=== PATIENT | female | born 2000 | race Two or more races ===

== ENCOUNTER 2023-01-28 09:38 | Emergency (ER) | payer OTHER ==
[~2023-01-28] VITALS: Ht 162.6 cm; Wt 98.0 kg
== END 2023-01-28 17:37 | disposition home or self-care (01) ==
LOC: ER 09:38
DX: R10.13 Epigastric pain (principal); Z91.018 Allergy to other foods

== ENCOUNTER 2024-10-05 11:24 | Emergency (ER) | payer OTHER ==
[~2024-10-05] VITALS: Ht 162.6 cm; Wt 86.2 kg
[2024-10-05] MEDS ORDERED: KETOROLAC TROMETHAMINE 60 MG VIAL IM STA (13:41)
[2024-10-05] MEDS ORDERED: ACETAMINOPHEN 500 MG GEL..CAP PO STA (13:42)
== END 2024-10-05 15:10 | disposition home or self-care (01) ==
LOC: ER 11:27
DX: S60.052A Contusion of left little finger without damage to nail, initial encounter (principal); X58.XXXA Exposure to other specified factors, initial encounter; Y93.89 Activity, other specified; Y92.89 Other specified places as the place of occurrence of the external cause; Y99.9 Unspecified external cause status; Z91.018 Allergy to other foods

== ENCOUNTER 2025-03-25 11:49 | Emergency (ER) | payer OTHER ==
[~2025-03-25] VITALS: Ht 162.6 cm; Wt 89.8 kg
[2025-03-25] MEDS ORDERED: IBUPROFEN600 MG PO (13:47)
[2025-03-25] MEDS ORDERED: NORFLEX100MG PO (13:47)
[2025-03-25] MEDS ORDERED: DEXAMETHASONE SODIUM PHOSPHATE 4 MG/ML VIAL IM ONE (14:00)
[2025-03-25] MEDS ORDERED: KETOROLAC TROMETHAMINE 60 MG VIAL IM ONE ×2 (14:00→14:10)
[2025-03-25] MEDS ORDERED: ORPHENADRINE CITRATE 30 MG/ML AMPUL IM ONE (14:00)
[2025-03-25] MEDS ORDERED: ORPHENADRINE CITRATE 30 MG/ML AMPUL ONE (14:10)
[2025-03-25] MEDS ORDERED: DEXAMETHASONE SODIUM PHOSPHATE 4 MG/ML VIAL ONE (14:10)
== END 2025-03-25 14:51 | disposition home or self-care (01) ==
LOC: ER 11:55
DX: M94.0 Chondrocostal junction syndrome [Tietze] (principal); R07.89 Other chest pain; Z91.018 Allergy to other foods